=== PATIENT | male | born 1975 | race Hispanic/Latino ===

== ENCOUNTER 2017-05-09 02:04 | Inpatient (IN) | payer OTHER ==
[~2017-05-09] VITALS: Ht 182.9 cm; Wt 114.8 kg
[~2017-05-09 02:04] MED LIST: AMOX-426 PO; DOXY100T2 PO; GLIP5TAB11 PO; TRAM50TA4 PO
[2017-05-09] MEDS ORDERED: ONDANSETRON HCL MDV 20ML 2 MG/ML VIAL ONE (02:31)
[2017-05-09] MEDS ORDERED: SODIUM CHLORIDE 0.9% 1000ML 1,000 ML IV ONE ×2 (02:31→02:32)
[2017-05-09 02:34] LABS: BASOPHILS % (AUTO) 0.5 % (0.0-5.0); EOSINOPHILS % (AUTO) 0.9 % (0.0-8.0); HEMATOCRIT 34.1 % (42-54); LYMPHOCYTES % (AUTO) 8.6 % (21.0-51.0); MEAN CORPUSCULAR HEMOGLOBIN 30.1 pg (27.0-33.0); MEAN CORPUSCULAR HGB CONC 33.8 g/dL (32.0-36.0); MONOCYTES % (AUTO) 4.7 % (3.0-13.0); NEUTROPHILS % (AUTO) 85.3 % (40.0-77.0); PLATELET COUNT (AUTO) 251 K/uL (130-400); RED BLOOD CELL COUNT(AUTO) 3.84 MIL/uL (4.50-6.20); RED CELL DISTRIBUTION WIDTH 13.5 % (11.0-15.5); WHITE BLOOD COUNT (AUTO) 17.1 K/uL (4.8-10.8)
[2017-05-09] MEDS ORDERED: ACETAMINOPHEN 325 MG TAB ONE (02:38)
[2017-05-09 02:42] LABS: CARBON DIOXIDE 19 mmol/L (21-32); CHLORIDE 109 mmol/L (101-111); CREATININE 6.3 mg/dL (0.5-1.5); GLOMERULAR FILTR. RATE CALC 11 mL/min (>60); GLUCOSE,RANDOM 97 mg/dL (70-105); POTASSIUM 4.9 mmol/L (3.5-5.1); SODIUM SERUM 143 mmol/L (136-145); UREA NITROGEN, BLOOD 52 mg/dL (7-18)
[2017-05-09 02:45] LABS: INR 0.97 (0.85-1.15); PARTIAL THROMBOPLASTIN TIME 26.8 SEC (26.3-35.5); PROTHROMBIN TIME 10.2 SEC (9.6-11.6)
[2017-05-09] MEDS ORDERED: CEFTRIAXONE SODIUM 1 GM ONE (02:47)
[2017-05-09 02:56] LABS: ALANINE AMINOTRANSFERASE 12 U/L (12-78); ALBUMIN 2.5 g/dL (3.5-5.0); ASPARTATE AMINOTRANSFERASE 13 U/L (10-37); BILIRUBIN,TOTAL 0.3 mg/dL (0.2-1.0); CREATINE KINASE MB 2.9 ng/mL (0.5-3.6); CREATINE KINASE, TOTAL 254 U/L (21-232); MYOGLOBIN 326 ng/mL (10-92); TOTAL PROTEIN, SERUM 8.1 g/dL (6.0-8.3); TROPONIN I < 0.04 ng/mL (0.00-0.06)
[2017-05-09 08:59] LABS: APPEARANCE,URINE Clear (CLEAR); BILIRUBIN,URINE Negative (NEGATIVE); COLOR,URINE Yellow (YELLOW); GLUCOSE, URINE (UA) 250 mg/dL (NEGATIVE); KETONES,URINE Negative (NEGATIVE); LEUKOCYTE ESTERASE ,URINE Negative (NEGATIVE); NITRATE,URINE Negative (NEGATIVE); OCCULT BLOOD,URINE Moderate (NEGATIVE); PROTEIN,URINE >=1000 (NEGATIVE); UROBILINOGEN,URINE 0.2 mg/dL (0.2-1.0)
[2017-05-09 09:41] LABS: BACTERIA,URINE Rare /HPF (None Seen); SQUAMOUS EPITHELIAL CELL,UR Rare /HPF (0-2); WBC,URINE 0-1 /HPF (0-1)
[2017-05-09] MEDS ORDERED: DEXTROSE 50%-WATER 50 ML DISP.SYRIN IV ONE ×2 (11:18→13:38)
[2017-05-09] MEDS ORDERED: CEFTRIAXONE 1GM/D5W 50ML 50 ML IV SCH (12:15)
[2017-05-09] MEDS: CEFTRIAXONE SODIUM 1 GM IVP SCH (12:30)
[2017-05-09] MEDS ORDERED: DEXTROSE 10%-WATER 1,000 ML IV ONE (13:27)
[2017-05-09] MEDS ORDERED: DEXTROSE 10 % IN WATER 500 ML IV PRN (16:30)
[2017-05-09] MEDS ORDERED: SODIUM CHLORIDE 0.9% 10 ML VIAL IVP SCH (16:30)
[2017-05-09] MEDS ORDERED: LACTULOSE 20 GM/30 ML UDCUP PO PRN (16:30)
[2017-05-09] MEDS ORDERED: GLUCAGON 1MG KIT 1 MG ML IM PRN (16:30)
[2017-05-09] MEDS: INSULIN R PO SSI SQ SCH ×2 (16:30→20:30)
[2017-05-09] MEDS ORDERED: DIPHENHYDRAMINE HCL 25 MG CAPSULE PO PRN (16:30)
[2017-05-09] MEDS ORDERED: NITROGLYCERIN 0.4 MG SL TAB SL PRN (16:30)
[2017-05-09] MEDS ORDERED: DEXTROSE 50%-WATER 50 ML DISP.SYRIN IV PRN (16:30)
[2017-05-09 16:40] VITALS: BP 179/108
[2017-05-09 19:00] VITALS: BP 144/81
[2017-05-09] MEDS: FAMOTIDINE 20MG TAB 20 MG TAB PO SCH (20:33)
[2017-05-09] MEDS: ACETAMINOPHEN 325 MG TAB PO PRN (20:34)
[2017-05-09 23:00] VITALS: BP 130/89
[2017-05-10 03:05] VITALS: BP 158/91
[2017-05-10 03:51] LABS: BASOPHILS % (AUTO) 0.4 % (0.0-5.0); EOSINOPHILS % (AUTO) 0.9 % (0.0-8.0); HEMATOCRIT 25.8 % (42-54); LYMPHOCYTES % (AUTO) 18.2 % (21.0-51.0); MEAN CORPUSCULAR HEMOGLOBIN 30.3 pg (27.0-33.0); MEAN CORPUSCULAR HGB CONC 34.8 g/dL (32.0-36.0); MEAN CORPUSCULAR VOLUME 87.1 fL (79-99); MONOCYTES % (AUTO) 6.2 % (3.0-13.0); NEUTROPHILS % (AUTO) 74.3 % (40.0-77.0); PLATELET COUNT (AUTO) 179 K/uL (130-400); RED BLOOD CELL COUNT(AUTO) 2.96 MIL/uL (4.50-6.20); RED CELL DISTRIBUTION WIDTH 13.2 % (11.0-15.5); WHITE BLOOD COUNT (AUTO) 12.8 K/uL (4.8-10.8)
[2017-05-10 04:03] LABS: CREATININE 6.8 mg/dL (0.5-1.5); POTASSIUM 4.7 mmol/L (3.5-5.1)
[2017-05-10] MEDS: INSULIN R PO SSI SQ SCH ×4 (06:33→20:33)
[2017-05-10 07:36] VITALS: BP 174/98
[2017-05-10] MEDS: ENOXAPARIN SODIUM 40 MG/0.4 ML SYRINGE SQ SCH (08:49)
[2017-05-10] MEDS: FAMOTIDINE 20MG TAB 20 MG TAB PO SCH ×2 (08:49→20:34)
[2017-05-10 11:16] VITALS: BP 162/108
[2017-05-10] MEDS: CEFTRIAXONE SODIUM 1 GM IVP SCH (12:54)
[2017-05-10 16:18] VITALS: BP 189/111
[2017-05-10] MEDS: HYDRALAZINE HCL 20 MG/ML VIAL IV PRN (16:53)
[2017-05-10] MEDS: ACETAMINOPHEN 325 MG TAB PO PRN (19:14)
[2017-05-10 19:39] VITALS: BP 145/86
[2017-05-10] MEDS: METOPROLOL TARTRATE 25 MG TAB PO SCH (20:34)
[2017-05-10] MEDS: ONDANSETRON HCL 4 MG/2 ML VIAL IVP PRN (21:13)
[2017-05-10 23:31] VITALS: BP 124/80
[2017-05-11] MEDS ORDERED: DEXTROSE 10%-WATER 1,000 ML IV ONE (02:09)
[2017-05-11 03:02] VITALS: BP 143/98
[2017-05-11 04:05] LABS: HEMATOCRIT 26.9 % (42-54); MEAN CORPUSCULAR HEMOGLOBIN 29.6 pg (27.0-33.0); MEAN CORPUSCULAR HGB CONC 34.1 g/dL (32.0-36.0); MEAN CORPUSCULAR VOLUME 86.9 fL (79-99); PLATELET COUNT (AUTO) 215 K/uL (130-400); RED BLOOD CELL COUNT(AUTO) 3.09 MIL/uL (4.50-6.20); RED CELL DISTRIBUTION WIDTH 13.2 % (11.0-15.5); WHITE BLOOD COUNT (AUTO) 11.4 K/uL (4.8-10.8)
[2017-05-11 04:09] LABS: POTASSIUM 4.9 mmol/L (3.5-5.1)
[2017-05-11 04:26] LABS: BASOPHILS % (MANUAL) 1 % (0-2); EOSINOPHILS % (MANUAL) 1 % (1-6); LYMPHOCYTES % (MANUAL) 30 % (22-44); MAN.DIFF COMMENT-IMPRESSION MANUAL DIFFERENTIAL; MONOCYTES % (MANUAL) 9 % (2-9); PLATELET MORPHOLOGY COMMENT ADEQUATE; SEGMENTED NEUTROPHILS % 59 % (40-70)
[2017-05-11] MEDS: INSULIN R PO SSI SQ SCH ×4 (06:38→21:00)
[2017-05-11 08:06] VITALS: BP 134/90
[2017-05-11] MEDS: ENOXAPARIN SODIUM 40 MG/0.4 ML SYRINGE SQ SCH (09:39)
[2017-05-11] MEDS: METOPROLOL TARTRATE 25 MG TAB PO SCH ×2 (09:40→20:36)
[2017-05-11] MEDS: CEFTRIAXONE SODIUM 1 GM IVP SCH (09:40)
[2017-05-11] MEDS: ACETAMINOPHEN 325 MG TAB PO PRN ×2 (09:40→20:36)
[2017-05-11] MEDS: FAMOTIDINE 20MG TAB 20 MG TAB PO SCH ×2 (09:40→20:36)
[2017-05-11 11:45] VITALS: BP 142/99
[2017-05-11 16:00] VITALS: BP 129/92
[2017-05-11 19:32] VITALS: BP 148/99
[2017-05-11] MEDS ORDERED: ALBUMIN (HUMAN) 25% 100 ML IV PRN (23:15)
[2017-05-11] MEDS ORDERED: DiphenhydrAMINE HCL 50 MG/ML VIAL IV PRN (23:15)
[2017-05-11 23:41] VITALS: BP 143/88
[2017-05-11] MEDS ORDERED: APIXABAN 5 MG TABLET PO SCH (23:45)
[2017-05-12 03:50] VITALS: BP 167/98
[2017-05-12 04:56] LABS: HEMATOCRIT 26.1 % (42-54); MEAN CORPUSCULAR HEMOGLOBIN 31.1 pg (27.0-33.0); MEAN CORPUSCULAR HGB CONC 35.6 g/dL (32.0-36.0); MEAN CORPUSCULAR VOLUME 87.3 fL (79-99); PLATELET COUNT (AUTO) 210 K/uL (130-400); RED BLOOD CELL COUNT(AUTO) 2.99 MIL/uL (4.50-6.20); RED CELL DISTRIBUTION WIDTH 13.3 % (11.0-15.5); WHITE BLOOD COUNT (AUTO) 9.2 K/uL (4.8-10.8)
[2017-05-12 05:04] LABS: CREATININE 7.1 mg/dL (0.5-1.5); POTASSIUM 4.6 mmol/L (3.5-5.1)
[2017-05-12 05:38] LABS: BAND NEUTROPHILS % (MANUAL) 1 % (0-2); BASOPHILS % (MANUAL) 1 % (0-2); EOSINOPHILS % (MANUAL) 3 % (1-6); LYMPHOCYTES % (MANUAL) 25 % (22-44); MAN.DIFF COMMENT-IMPRESSION MANUAL DIFFERENTIAL; MONOCYTES % (MANUAL) 3 % (2-9); SEGMENTED NEUTROPHILS % 67 % (40-70)
[2017-05-12 05:39] LABS: PLATELET MORPHOLOGY COMMENT ADEQUATE
[2017-05-12] MEDS: INSULIN R PO SSI SQ SCH ×4 (06:27→20:17)
[2017-05-12 08:00] VITALS: BP 156/92
[2017-05-12] MEDS: METOPROLOL TARTRATE 25 MG TAB PO SCH ×2 (09:41→20:20)
[2017-05-12] MEDS: FAMOTIDINE 20MG TAB 20 MG TAB PO SCH (09:41)
[2017-05-12] MEDS: ENOXAPARIN SODIUM 40 MG/0.4 ML SYRINGE SQ SCH (09:42)
[2017-05-12 11:25] VITALS: BP 159/95
[2017-05-12] MEDS: CEFTRIAXONE SODIUM 1 GM IVP SCH (12:53)
[2017-05-12] MEDS: CLINDAMYCIN 600 MG/D5% WATER 50 ML IV SCH ×2 (15:11→20:19)
[2017-05-12 16:00] VITALS: BP 155/97
[2017-05-12 19:50] VITALS: BP 154/103
[2017-05-12] MEDS: ACETAMINOPHEN 325 MG TAB PO PRN (20:28)
[2017-05-12 23:28] VITALS: BP 150/94
[2017-05-13] MEDS: CLINDAMYCIN 600 MG/D5% WATER 50 ML IV SCH ×4 (02:25→20:32)
[2017-05-13 03:45] VITALS: BP 149/94
[2017-05-13 04:30] LABS: HEMATOCRIT 25.8 % (42-54); MEAN CORPUSCULAR HEMOGLOBIN 30.6 pg (27.0-33.0); MEAN CORPUSCULAR HGB CONC 35.4 g/dL (32.0-36.0); MEAN CORPUSCULAR VOLUME 86.5 fL (79-99); PLATELET COUNT (AUTO) 234 K/uL (130-400); RED BLOOD CELL COUNT(AUTO) 2.99 MIL/uL (4.50-6.20); WHITE BLOOD COUNT (AUTO) 8.2 K/uL (4.8-10.8)
[2017-05-13 04:42] LABS: CREATININE 7.1 mg/dL (0.5-1.5); MAGNESIUM 1.4 mg/dL (1.80-2.40); POTASSIUM 4.2 mmol/L (3.5-5.1)
[2017-05-13] MEDS: ACETAMINOPHEN 325 MG TAB PO PRN (05:48)
[2017-05-13] MEDS: INSULIN R PO SSI SQ SCH ×4 (06:38→21:01)
[2017-05-13 07:44] VITALS: BP 152/105
[2017-05-13] MEDS: FAMOTIDINE 20MG TAB 20 MG TAB PO SCH (08:38)
[2017-05-13] MEDS: METOPROLOL TARTRATE 25 MG TAB PO SCH ×2 (08:38→20:32)
[2017-05-13] MEDS: BUMETANIDE 1 MG TAB PO SCH (08:38)
[2017-05-13] MEDS: ENOXAPARIN SODIUM 40 MG/0.4 ML SYRINGE SQ SCH (08:43)
[2017-05-13] MEDS: ONDANSETRON HCL 4 MG/2 ML VIAL IVP PRN (09:03)
[2017-05-13 11:34] VITALS: BP 146/87
[2017-05-13] MEDS: CEFTRIAXONE SODIUM 1 GM IVP SCH (12:49)
[2017-05-13 16:24] VITALS: BP 159/103
[2017-05-13 19:00] VITALS: BP 157/92
[2017-05-13 22:27] VITALS: BP 155/91
[2017-05-14] VITALS (13 sets, daily range): BP systolic 131–187; BP diastolic 76–104
[2017-05-14] MEDS: CLINDAMYCIN 600 MG/D5% WATER 50 ML IV SCH ×4 (01:57→20:26)
[2017-05-14 04:29] LABS: HEMATOCRIT 24.8 % (42-54); MEAN CORPUSCULAR HEMOGLOBIN 30.7 pg (27.0-33.0); MEAN CORPUSCULAR HGB CONC 35.8 g/dL (32.0-36.0); MEAN CORPUSCULAR VOLUME 85.9 fL (79-99); NUCLEATED RED BLOOD CELLS 0.1 % (0.0-0.19); PLATELET COUNT (AUTO) 249 K/uL (130-400); RED BLOOD CELL COUNT(AUTO) 2.88 MIL/uL (4.50-6.20); RED CELL DISTRIBUTION WIDTH 12.7 % (11.0-15.5); WHITE BLOOD COUNT (AUTO) 8.5 K/uL (4.8-10.8)
[2017-05-14 04:37] LABS: CREATININE 7.3 mg/dL (0.5-1.5); POTASSIUM 4.3 mmol/L (3.5-5.1)
[2017-05-14] MEDS: INSULIN R PO SSI SQ SCH ×4 (06:38→20:27)
[2017-05-14] MEDS: BUMETANIDE 1 MG TAB PO SCH (09:47)
[2017-05-14] MEDS: ENOXAPARIN SODIUM 40 MG/0.4 ML SYRINGE SQ SCH (09:47)
[2017-05-14] MEDS: FAMOTIDINE 20MG TAB 20 MG TAB PO SCH (09:47)
[2017-05-14] MEDS: METOPROLOL TARTRATE 25 MG TAB PO SCH ×2 (09:47→20:26)
[2017-05-14 12:49] LABS: INR 1.01 (0.85-1.15); PARTIAL THROMBOPLASTIN TIME 30.8 SEC (26.3-35.5); PROTHROMBIN TIME 10.6 SEC (9.6-11.6)
[2017-05-14] MEDS: CEFTRIAXONE SODIUM 1 GM IVP SCH (13:28)
[2017-05-14] MEDS ORDERED: ISOVUE-300 100 ML VIAL IV ONE (14:22)
[2017-05-14] MEDS ORDERED: LIDOCAINE HCL 1% MDV 50ML VIAL ONE (14:22)
[2017-05-14] MEDS ORDERED: MORPHINE SULFATE 4 MG/1ML SYG ONE (14:50)
[2017-05-15] VITALS (7 sets, daily range): BP systolic 113–193; BP diastolic 51–109
[2017-05-15 00:41] LABS: ALBUMIN 2.3 g/dL (3.5-5.0)
[2017-05-15 00:52] LABS: CREATININE 5.6 mg/dL (0.5-1.5); POTASSIUM 4.1 mmol/L (3.5-5.1)
[2017-05-15 01:19] LABS: HEMOGLOBIN A1C 6.8 % (4.0-6.0)
[2017-05-15 01:40] LABS: FERRITIN 549 ng/mL (30-400); IRON, SERUM 49 mcg/dL (65-175)
[2017-05-15] MEDS: CLINDAMYCIN 600 MG/D5% WATER 50 ML IV SCH ×4 (02:15→22:41)
[2017-05-15] MEDS: ONDANSETRON HCL 4 MG/2 ML VIAL IVP PRN (03:31)
[2017-05-15] MEDS: HYDRALAZINE HCL 20 MG/ML VIAL IV PRN (03:52)
[2017-05-15] MEDS: INSULIN R PO SSI SQ SCH ×4 (06:29→21:00)
[2017-05-15] MEDS: BUMETANIDE 1 MG TAB PO SCH (11:11)
[2017-05-15] MEDS: FAMOTIDINE 20MG TAB 20 MG TAB PO SCH (11:11)
[2017-05-15] MEDS: METOPROLOL TARTRATE 25 MG TAB PO SCH ×2 (11:11→22:42)
[2017-05-15] MEDS: ENOXAPARIN SODIUM 40 MG/0.4 ML SYRINGE SQ SCH (11:12)
[2017-05-15] MEDS: CEFTRIAXONE SODIUM 1 GM IVP SCH (11:12)
[2017-05-15] MEDS: ACETAMINOPHEN 325 MG TAB PO PRN (11:15)
[2017-05-15] MEDS ORDERED: METOCLOPRAMIDE 10 MG/2 ML VIAL ONE (12:08)
[2017-05-15] MEDS: METOCLOPRAMIDE 10 MG/2 ML VIAL IVP SCH ×2 (12:31→22:42)
[2017-05-15] MEDS ORDERED: HEPARIN SODIUM 5000UNIT/ML 1ML VIAL ONE (18:21)
[2017-05-15] MEDS: ATORVASTATIN CALCIUM 20 MG TABLET PO SCH (22:42)
[2017-05-16 03:30] VITALS: BP 140/88
[2017-05-16] MEDS: CLINDAMYCIN 600 MG/D5% WATER 50 ML IV SCH ×4 (05:19→20:08)
[2017-05-16] MEDS: METOCLOPRAMIDE 10 MG/2 ML VIAL IVP SCH ×2 (05:19→14:33)
[2017-05-16 05:48] LABS: HEMATOCRIT 27.1 % (42-54); MEAN CORPUSCULAR HEMOGLOBIN 31.3 pg (27.0-33.0); MEAN CORPUSCULAR HGB CONC 36.6 g/dL (32.0-36.0); MEAN CORPUSCULAR VOLUME 85.4 fL (79-99); PLATELET COUNT (AUTO) 266 K/uL (130-400); RED BLOOD CELL COUNT(AUTO) 3.17 MIL/uL (4.50-6.20); RED CELL DISTRIBUTION WIDTH 12.7 % (11.0-15.5)
[2017-05-16] MEDS: INSULIN R PO SSI SQ SCH ×4 (05:51→21:00)
[2017-05-16 06:13] LABS: CREATININE 5.4 mg/dL (0.5-1.5); POTASSIUM 3.7 mmol/L (3.5-5.1)
[2017-05-16 08:00] VITALS: BP 152/94
[2017-05-16 08:17] LABS: HEPATITIS Bs ANTIGEN SCREEN P Negative (Negative)
[2017-05-16] MEDS: BUMETANIDE 1 MG TAB PO SCH (08:34)
[2017-05-16] MEDS: METOPROLOL TARTRATE 25 MG TAB PO SCH ×2 (08:34→20:09)
[2017-05-16] MEDS: FAMOTIDINE 20MG TAB 20 MG TAB PO SCH (08:34)
[2017-05-16] MEDS: ENOXAPARIN SODIUM 40 MG/0.4 ML SYRINGE SQ SCH (08:35)
[2017-05-16 12:00] VITALS: BP 148/88
[2017-05-16] MEDS: CEFTRIAXONE SODIUM 1 GM IVP SCH (12:23)
[2017-05-16 16:00] VITALS: BP 132/87
[2017-05-16 19:00] VITALS: BP 149/97
[2017-05-16] MEDS: ATORVASTATIN CALCIUM 20 MG TABLET PO SCH (20:09)
[2017-05-16 23:55] VITALS: BP 115/66
[2017-05-17] MEDS: CLINDAMYCIN 600 MG/D5% WATER 50 ML IV SCH ×4 (02:29→20:26)
[2017-05-17 03:05] VITALS: BP 131/82
[2017-05-17] MEDS: METOCLOPRAMIDE 10 MG/2 ML VIAL IVP SCH ×3 (05:15→22:50)
[2017-05-17 06:01] LABS: MEAN CORPUSCULAR HGB CONC 35.2 g/dL (32.0-36.0); MEAN CORPUSCULAR VOLUME 85.3 fL (79-99); PLATELET COUNT (AUTO) 267 K/uL (130-400); RED CELL DISTRIBUTION WIDTH 12.4 % (11.0-15.5); WHITE BLOOD COUNT (AUTO) 8.5 K/uL (4.8-10.8)
[2017-05-17] MEDS: INSULIN R PO SSI SQ SCH ×4 (06:14→20:45)
[2017-05-17 06:18] LABS: CREATININE 5.6 mg/dL (0.5-1.5); POTASSIUM 3.4 mmol/L (3.5-5.1)
[2017-05-17 07:00] VITALS: BP 154/81
[2017-05-17] MEDS: BUMETANIDE 1 MG TAB PO SCH (09:41)
[2017-05-17] MEDS: FAMOTIDINE 20MG TAB 20 MG TAB PO SCH (09:41)
[2017-05-17] MEDS: METOPROLOL TARTRATE 25 MG TAB PO SCH ×2 (09:42→20:26)
[2017-05-17] MEDS: ENOXAPARIN SODIUM 40 MG/0.4 ML SYRINGE SQ SCH (09:43)
[2017-05-17 11:00] VITALS: BP 137/88
[2017-05-17] MEDS: CEFTRIAXONE SODIUM 1 GM IVP SCH (11:46)
[2017-05-17 16:00] VITALS: BP 145/92
[2017-05-17 19:35] VITALS: BP 149/89
[2017-05-17] MEDS: ATORVASTATIN CALCIUM 20 MG TABLET PO SCH (20:25)
[2017-05-17 23:50] VITALS: BP 137/81
[2017-05-18] VITALS (15 sets, daily range): BP systolic 125–158; BP diastolic 78–103
[2017-05-18] MEDS: CLINDAMYCIN 600 MG/D5% WATER 50 ML IV SCH ×4 (02:12→19:59)
[2017-05-18 04:58] LABS: HEMATOCRIT 29.8 % (42-54); MEAN CORPUSCULAR HEMOGLOBIN 30.1 pg (27.0-33.0); MEAN CORPUSCULAR HGB CONC 35.1 g/dL (32.0-36.0); MEAN CORPUSCULAR VOLUME 85.7 fL (79-99); PLATELET COUNT (AUTO) 261 K/uL (130-400); RED BLOOD CELL COUNT(AUTO) 3.48 MIL/uL (4.50-6.20); RED CELL DISTRIBUTION WIDTH 12.7 % (11.0-15.5); WHITE BLOOD COUNT (AUTO) 8.7 K/uL (4.8-10.8)
[2017-05-18 05:05] LABS: CREATININE 7.2 mg/dL (0.5-1.5); POTASSIUM 3.4 mmol/L (3.5-5.1)
[2017-05-18 05:11] LABS: INR 1.04 (0.85-1.15); PARTIAL THROMBOPLASTIN TIME 27.6 SEC (26.3-35.5); PROTHROMBIN TIME 10.9 SEC (9.6-11.6)
[2017-05-18] MEDS: METOCLOPRAMIDE 10 MG/2 ML VIAL IVP SCH ×3 (05:54→21:41)
[2017-05-18] MEDS: INSULIN R PO SSI SQ SCH ×4 (05:58→21:44)
[2017-05-18] MEDS ORDERED: ONDANSETRON HCL MDV 20ML 2 MG/ML VIAL ONE ×2 (07:57→10:15)
[2017-05-18] MEDS ORDERED: SODIUM CHLORIDE 0.9% 1000ML 1,000 ML IV ONE (08:19)
[2017-05-18] MEDS: BUMETANIDE 1 MG TAB PO SCH (08:26)
[2017-05-18] MEDS: FAMOTIDINE 20MG TAB 20 MG TAB PO SCH (08:26)
[2017-05-18] MEDS: ENOXAPARIN SODIUM 40 MG/0.4 ML SYRINGE SQ SCH (08:26)
[2017-05-18] MEDS ORDERED: PAPAVERINE HCL 30 MG/ML 2ML VIAL ONE (08:37)
[2017-05-18] MEDS ORDERED: OCTYL 2-CYANOACRYLATE 1 EACH TP ONE (08:37)
[2017-05-18] MEDS ORDERED: THROMBIN-JMI 5000 UNIT/VIAL TP ONE (08:38)
[2017-05-18] MEDS: METOPROLOL TARTRATE 25 MG TAB PO SCH ×2 (09:00→19:59)
[2017-05-18] MEDS ORDERED: SODIUM BICARB [NEONATAL] 4.2% 10ML SYG ONE (10:14)
[2017-05-18] MEDS ORDERED: BUPIVACAINE/PF 0.25% 30ML VIAL IJ ONE (10:14)
[2017-05-18] MEDS ORDERED: LIDOCAINE HCL 1% 20 ML VIAL ONE (10:14)
[2017-05-18] MEDS ORDERED: LIDOCAINE PF 2% 5ML ABBOJECT ONE (10:15)
[2017-05-18] MEDS ORDERED: ROCURONIUM BROMIDE 10MG/1ML 5ML VL ONE (10:15)
[2017-05-18] MEDS ORDERED: ROPIVACAINE 0.5% 5MG/ML 30ML IJ ONE (10:15)
[2017-05-18] MEDS ORDERED: PHENYLEPHRINE HCL 10 MG/ML 1ML VIAL IV ONE (10:15)
[2017-05-18] MEDS ORDERED: LIDOCAINE HCL MPF 1% 5ML VIAL ONE (10:15)
[2017-05-18] MEDS ORDERED: LIDOCAINE HCL 4% LTA SOL 4 ML VIAL ONE (10:15)
[2017-05-18] MEDS ORDERED: DEXAMETHASONE SOD PHOSPHATE 10MG/ML 1ML VIAL ONE (10:15)
[2017-05-18] MEDS ORDERED: MIDAZOLAM HCL 1 MG/ML 2ML VIAL ONE ×3 (10:16→11:13)
[2017-05-18] MEDS ORDERED: PROPOFOL 10 MG/ML 20ML VIAL IV ONE (10:19)
[2017-05-18] MEDS ORDERED: FENTANYL CITRATE PF 50 MCG/1 ML 2ML VIAL ONE ×2 (10:22→10:57)
[2017-05-18] MEDS ORDERED: DiphenhydrAMINE HCL 50 MG/ML VIAL ONE (10:45)
[2017-05-18] MEDS: CEFTRIAXONE SODIUM 1 GM IVP SCH (12:58)
[2017-05-18] MEDS: HYDRALAZINE HCL 20 MG/ML VIAL IV PRN (12:59)
[2017-05-18] MEDS: ATORVASTATIN CALCIUM 20 MG TABLET PO SCH (19:59)
[2017-05-19] VITALS (7 sets, daily range): BP systolic 113–142; BP diastolic 62–87
[2017-05-19] MEDS: CLINDAMYCIN 600 MG/D5% WATER 50 ML IV SCH ×4 (02:23→19:31)
[2017-05-19] MEDS: METOCLOPRAMIDE 10 MG/2 ML VIAL IVP SCH ×3 (05:45→22:00)
[2017-05-19] MEDS: INSULIN R PO SSI SQ SCH ×4 (05:46→21:01)
[2017-05-19] MEDS: FAMOTIDINE 20MG TAB 20 MG TAB PO SCH (08:52)
[2017-05-19] MEDS: METOPROLOL TARTRATE 25 MG TAB PO SCH ×2 (08:52→19:31)
[2017-05-19] MEDS: BUMETANIDE 1 MG TAB PO SCH (08:52)
[2017-05-19] MEDS: ENOXAPARIN SODIUM 40 MG/0.4 ML SYRINGE SQ SCH (08:53)
[2017-05-19] MEDS ORDERED: SODIUM CHLORIDE 0.9% 1000ML 1,000 ML IV PRN (10:45)
[2017-05-19] MEDS ORDERED: 0.9% SODIUM CHLORIDE 250 ML IV BAG IV PRN (10:45)
[2017-05-19] MEDS ORDERED: ALBUMIN (HUMAN) 25% 100 ML IV PRN (10:45)
[2017-05-19] MEDS: HEPARIN SODIUM 5000UNIT/ML 1ML VIAL IJ PRN (12:26)
[2017-05-19] MEDS: CEFTRIAXONE SODIUM 1 GM IVP SCH (12:34)
[2017-05-19] MEDS: ATORVASTATIN CALCIUM 20 MG TABLET PO SCH (19:31)
[2017-05-20] MEDS: CLINDAMYCIN 600 MG/D5% WATER 50 ML IV SCH ×4 (02:07→20:35)
[2017-05-20 04:05] VITALS: BP 132/86
[2017-05-20] MEDS: METOCLOPRAMIDE 10 MG/2 ML VIAL IVP SCH ×3 (05:16→22:00)
[2017-05-20 05:25] LABS: HEMATOCRIT 28.5 % (42-54); MEAN CORPUSCULAR HEMOGLOBIN 30.3 pg (27.0-33.0); MEAN CORPUSCULAR HGB CONC 35.3 g/dL (32.0-36.0); PLATELET COUNT (AUTO) 245 K/uL (130-400); RED BLOOD CELL COUNT(AUTO) 3.31 MIL/uL (4.50-6.20); RED CELL DISTRIBUTION WIDTH 12.7 % (11.0-15.5); WHITE BLOOD COUNT (AUTO) 10.7 K/uL (4.8-10.8)
[2017-05-20] MEDS: INSULIN R PO SSI SQ SCH ×4 (05:38→20:36)
[2017-05-20 05:42] LABS: CREATININE 7.6 mg/dL (0.5-1.5); POTASSIUM 3.4 mmol/L (3.5-5.1)
[2017-05-20 07:50] LABS: BASOPHILS % (MANUAL) 1 % (0-2); EOSINOPHILS % (MANUAL) 2 % (1-6); LYMPHOCYTES % (MANUAL) 24 % (22-44); MONOCYTES % (MANUAL) 3 % (2-9); SEGMENTED NEUTROPHILS % 70 % (40-70)
[2017-05-20 07:51] LABS: MAN.DIFF COMMENT-IMPRESSION MANUAL DIFFERENTIAL; PLATELET MORPHOLOGY COMMENT ADEQUATE
[2017-05-20 08:00] VITALS: BP 164/99
[2017-05-20] MEDS: METOPROLOL TARTRATE 25 MG TAB PO SCH ×2 (08:26→20:35)
[2017-05-20] MEDS: FAMOTIDINE 20MG TAB 20 MG TAB PO SCH (08:26)
[2017-05-20] MEDS: BUMETANIDE 1 MG TAB PO SCH (08:26)
[2017-05-20] MEDS: ENOXAPARIN SODIUM 40 MG/0.4 ML SYRINGE SQ SCH (08:27)
[2017-05-20 11:24] VITALS: BP 118/75
[2017-05-20] MEDS: CEFTRIAXONE SODIUM 1 GM IVP SCH (13:05)
[2017-05-20 16:00] VITALS: BP 133/74
[2017-05-20 19:50] VITALS: BP 108/72
[2017-05-20] MEDS: ATORVASTATIN CALCIUM 20 MG TABLET PO SCH (20:35)
[2017-05-20 23:38] VITALS: BP 109/71
[2017-05-21 04:30] VITALS: BP 106/66
[2017-05-21 05:24] LABS: EOSINOPHILS % (AUTO) 1.3 % (0.0-8.0); LYMPHOCYTES % (AUTO) 30.8 % (21.0-51.0); MEAN CORPUSCULAR HEMOGLOBIN 29.7 pg (27.0-33.0); MEAN CORPUSCULAR HGB CONC 34.6 g/dL (32.0-36.0); MEAN CORPUSCULAR VOLUME 85.6 fL (79-99); MONOCYTES % (AUTO) 8.7 % (3.0-13.0); NEUTROPHILS % (AUTO) 58.2 % (40.0-77.0); PLATELET COUNT (AUTO) 253 K/uL (130-400); RED CELL DISTRIBUTION WIDTH 12.9 % (11.0-15.5); WHITE BLOOD COUNT (AUTO) 9.5 K/uL (4.8-10.8)
[2017-05-21 05:44] LABS: CREATININE 6.8 mg/dL (0.5-1.5); POTASSIUM 3.4 mmol/L (3.5-5.1)
[2017-05-21] MEDS: METOCLOPRAMIDE 10 MG/2 ML VIAL IVP SCH ×3 (06:00→22:00)
[2017-05-21] MEDS: INSULIN R PO SSI SQ SCH ×4 (06:07→21:00)
[2017-05-21] MEDS: CLINDAMYCIN 600 MG/D5% WATER 50 ML IV SCH ×4 (06:12→20:07)
[2017-05-21 08:00] VITALS: BP 116/80
[2017-05-21] MEDS: ENOXAPARIN SODIUM 40 MG/0.4 ML SYRINGE SQ SCH (09:39)
[2017-05-21] MEDS: FAMOTIDINE 20MG TAB 20 MG TAB PO SCH (09:39)
[2017-05-21] MEDS: BUMETANIDE 1 MG TAB PO SCH (09:39)
[2017-05-21] MEDS: METOPROLOL TARTRATE 25 MG TAB PO SCH ×2 (09:39→20:07)
[2017-05-21 12:00] VITALS: BP 121/72
[2017-05-21] MEDS: CEFTRIAXONE SODIUM 1 GM IVP SCH (12:02)
[2017-05-21 16:00] VITALS: BP 110/72
[2017-05-21 20:00] VITALS: BP 123/78
[2017-05-21] MEDS: ATORVASTATIN CALCIUM 20 MG TABLET PO SCH (20:07)
[2017-05-21 23:47] VITALS: BP 109/60
[2017-05-22] MEDS: CLINDAMYCIN 600 MG/D5% WATER 50 ML IV SCH ×3 (02:05→14:24)
[2017-05-22 04:00] VITALS: BP 101/54
[2017-05-22 05:17] LABS: BASOPHILS % (AUTO) 0.9 % (0.0-5.0); EOSINOPHILS % (AUTO) 1.7 % (0.0-8.0); LYMPHOCYTES % (AUTO) 30.1 % (21.0-51.0); MEAN CORPUSCULAR HEMOGLOBIN 30.4 pg (27.0-33.0); MEAN CORPUSCULAR HGB CONC 35.6 g/dL (32.0-36.0); MEAN CORPUSCULAR VOLUME 85.5 fL (79-99); MONOCYTES % (AUTO) 8.4 % (3.0-13.0); NEUTROPHILS % (AUTO) 58.9 % (40.0-77.0); PLATELET COUNT (AUTO) 235 K/uL (130-400); RED BLOOD CELL COUNT(AUTO) 3.62 MIL/uL (4.50-6.20); RED CELL DISTRIBUTION WIDTH 12.6 % (11.0-15.5); WHITE BLOOD COUNT (AUTO) 9.3 K/uL (4.8-10.8)
[2017-05-22 05:28] LABS: POTASSIUM 3.3 mmol/L (3.5-5.1)
[2017-05-22 05:41] LABS: CREATININE 8.2 mg/dL (0.5-1.5)
[2017-05-22] MEDS: METOCLOPRAMIDE 10 MG/2 ML VIAL IVP SCH (06:00)
[2017-05-22] MEDS: INSULIN R PO SSI SQ SCH ×3 (06:09→16:30)
[2017-05-22 07:30] VITALS: BP 125/78
[2017-05-22] MEDS: FAMOTIDINE 20MG TAB 20 MG TAB PO SCH (08:54)
[2017-05-22] MEDS: BUMETANIDE 1 MG TAB PO SCH (08:54)
[2017-05-22] MEDS: METOPROLOL TARTRATE 25 MG TAB PO SCH (08:54)
[2017-05-22] MEDS: ENOXAPARIN SODIUM 40 MG/0.4 ML SYRINGE SQ SCH (08:55)
[2017-05-22 11:00] VITALS: BP 105/68
[2017-05-22] MEDS ORDERED: ONDANSETRON HCL MDV 20ML 2 MG/ML VIAL ONE (11:28)
[2017-05-22] MEDS: ONDANSETRON HCL 4 MG/2 ML VIAL IVP PRN (11:29)
[2017-05-22] MEDS: CEFTRIAXONE SODIUM 1 GM IVP SCH (13:24)
[2017-05-22] MEDS ORDERED: METOCLOPRAMIDE 5 MG TABLET PO SCH (17:00)
[2017-05-22 19:43] VITALS: BP 118/74
[2017-05-22] MEDS: HEPARIN SODIUM 5000UNIT/ML 1ML VIAL IJ PRN (19:55)
== END 2017-05-22 20:30 | disposition home or self-care (01) | DRG 853 ==
LOC: EDH 02:04 → EDHIP 02:05 → 2AH 15:29 → 4BH 05-15 12:42
PROVIDERS: ADMIT Internal Medicine Nephrology; ATTEND Internal Medicine Nephrology
PROC: 5A1D70Z Performance of Urinary Filtration, Intermittent, Less than 6 Hours Per Day (ICD-10-PCS; principal; 2017-05-14)
PROC: 5A1D70Z Performance of Urinary Filtration, Intermittent, Less than 6 Hours Per Day (ICD-10-PCS; 2017-05-15)
PROC: 5A1D70Z Performance of Urinary Filtration, Intermittent, Less than 6 Hours Per Day (ICD-10-PCS; 2017-05-16)
PROC: 03180JV Bypass Left Brachial Artery to Superior Vena Cava with Synthetic Substitute, Open Approach (ICD-10-PCS; 2017-05-18 11:10)
PROC: 5A1D70Z Performance of Urinary Filtration, Intermittent, Less than 6 Hours Per Day (ICD-10-PCS; 2017-05-19)
PROC: 5A1D70Z Performance of Urinary Filtration, Intermittent, Less than 6 Hours Per Day (ICD-10-PCS; 2017-05-20)
PROC: 5A1D70Z Performance of Urinary Filtration, Intermittent, Less than 6 Hours Per Day (ICD-10-PCS; 2017-05-22)
DX: A41.9 Sepsis, unspecified organism (principal); N17.0 Acute kidney failure with tubular necrosis; L03.115 Cellulitis of right lower limb; E11.21 Type 2 diabetes mellitus with diabetic nephropathy; E11.319 Type 2 diabetes mellitus with unspecified diabetic retinopathy without macular edema; E66.01 Morbid (severe) obesity due to excess calories; N18.6 End stage renal disease; I12.0 Hypertensive chronic kidney disease with stage 5 chronic kidney disease or end stage renal disease; L03.116 Cellulitis of left lower limb; D63.8 Anemia in other chronic diseases classified elsewhere; E11.22 Type 2 diabetes mellitus with diabetic chronic kidney disease; E11.36 Type 2 diabetes mellitus with diabetic cataract; E11.65 Type 2 diabetes mellitus with hyperglycemia; E78.5 Hyperlipidemia, unspecified; E87.70 Fluid overload, unspecified; H54.8 Legal blindness, as defined in USA; Z68.34 Body mass index [BMI] 34.0-34.9, adult; Z79.02 Long term (current) use of antithrombotics/antiplatelets; Z79.82 Long term (current) use of aspirin; Z99.2 Dependence on renal dialysis; Z83.3 Family history of diabetes mellitus
CPT/HCPCS: 36415; 36558; 71045; 76770; 77001; 80048; 80053; 80061; 81001; 82040; 82550; 82553; 82728; 82948; 83036; 83540; 83605; 83735; 83874; 84484; 85025; 85027; 85610; 85730; 86704; 86706; 87040; 87088; 87340; 87520; 90935; 93005; 93971; A4218; C1750; J0360; J0696; J1100; J1200; J1644; J1650; J1815; J2001; J2250; J2270; J2370; J2440; J2704; J2765; J2795; J3010; J3490; J7030; J7070; Q9967